=== PATIENT | female | born 1990 | race Caucasian/White ===

== ENCOUNTER 2022-10-15 08:55 | Outpatient (CLI) | payer OTHER, SELFPAY ==
--- NOTE | 2022-10-15 09:15 | CRLHL7_ITS ---
For Patients: As a result of the Century Cures Act, medical imaging exams and procedure reports are released immediately into your electronic medical record. You may view this report before your referring provider. If you have questions, please contact your health care provider. INDICATION: First trimester scan, establish dates. COMPARISON: None. TECHNIQUE: Real-time olivares-scale imaging of the pelvis was performed. No subchorionic hemorrhage. FINDINGS: Gestational sac measures 2.1 cm, 6 weeks 6 days. Internal echoes are present within the gestational sac. Yolk sac appears irregular and measures 2.9 millimeters. pole is poorly defined and measures 2.7 millimeters, 5 weeks 6 days. No heart tones. Corpus luteal cyst is present within the left ovary. No excess pelvic free fluid. IMPRESSION: Poorly defined pole without heart tones with associated echoes in the gestational sac, likely representing demise. Dictated by Earl Stafford MD @ 10/15/2022 9:52:15 AM (Electronically Signed)
== END 2022-10-15 08:56 | disposition home or self-care (01) ==
LOC: US 08:56
PROVIDERS: Visit Provider Physician Assistant
DX: Z34.91 Encounter for supervision of normal pregnancy, unspecified, first trimester (principal); O36.8310 Maternal care for abnormalities of the fetal heart rate or rhythm, first trimester, not applicable or unspecified; Z3A.01 Less than 8 weeks gestation of pregnancy
CPT/HCPCS: 76817

== ENCOUNTER 2022-10-27 10:58 | Outpatient (CLI) | payer OTHER, SELFPAY | END 2022-10-27 10:59 | disposition home or self-care (01) | PROVIDERS: Visit Provider Obstetrics & Gynecology | DX: O03.9 Complete or unspecified spontaneous abortion without complication (principal) | CPT/HCPCS: 76817; 86850; 86900; 86901 ==

== ENCOUNTER 2022-11-03 09:12 | Outpatient (CLI) | payer OTHER, SELFPAY ==
--- NOTE | 2022-11-03 09:15 | CRLHL7_ITS ---
For Patients: As a result of the Century Cures Act, medical imaging exams and procedure reports are released immediately into your electronic medical record. You may view this report before your referring provider. If you have questions, please contact your health care provider. INDICATION: MISSED COMPARISON: 10/27/2022 TECHNIQUE: Real-time olivares-scale imaging of the pelvis was performed. FINDINGS: Interval clearing of the previously noted gestational sac. Endometrial thickness 6 millimeters. No endometrial fluid. Slight heterogeneity of the endometrial echotexture and vascularity. No hematoma. Normal ovaries. No excess pelvic free fluid. IMPRESSION: Interval passage of the previously noted gestational sac. No intrauterine or ectopic . Dictated by Earl Stafford MD @ 11/03/2022 10:06:44 AM (Electronically Signed)
== END 2022-11-03 09:13 | disposition home or self-care (01) ==
LOC: US 09:12
PROVIDERS: Visit Provider Obstetrics & Gynecology
DX: O02.1 Missed abortion (principal)
CPT/HCPCS: 76830

== ENCOUNTER 2023-01-18 18:37 | Emergency (ER) | payer OTHER, SELFPAY ==
[2023-01-18 18:48] VITALS: BP 140/79; PULSE 90; RESP 18; TEMP 36.8; O2SAT 98; BMI 33.3
--- NOTE | 2023-01-18 18:52 | CRLHL7_ITS ---
For Patients: As a result of the Cures Act, medical imaging exams and procedure reports are released immediately into your electronic medical record. You may view this report before your referring provider. If you have questions, please contact your health care provider. INDICATION: Left lower abdominal pain. TECHNIQUE: Ultrasound OB pelvis transabdominal and transvaginal. Real-time olivares-scale imaging of the pelvis was performed. COMPARISON: None. FINDINGS: There is a single intrauterine gestation. The embryo demonstrates a regular cardiac rate measuring 123 beats per minute. The embryo`s crown rump length measurement of 0.8 cm corresponds to a gestational age of 6 weeks, 5 days with a sonographic due date of 09/08/2023. There is a normal appearing yolk sac. There are no gross abnormalities noted within the embryo at this early state of development. The placenta has not yet developed. Incidental 1.3 centimeters subchorionic hemorrhage. The ovaries are of normal size. Tiny right corpus luteal cyst. There are no suspicious fluid collections noted in the cul-de-sac. IMPRESSION: Single viable intrauterine with gestational age of 6 weeks, 5 days based on crown-rump length. Incidental 1.3 centimeters subchorionic hemorrhage which could be followed up with on subsequent imaging. Dictated by Richard Soriano MD @ 01/18/2023 9:03:49 PM (Electronically Signed)
--- NOTE | 2023-01-18 19:42 | ED.GENADULT ---
HPI - General Adult General Chief complaint: Abdominal Pain Stated complaint: Rule out ectopic Time Seen by Provider: 01/18/23 19:43 History of Present Illness HPI narrative: Reports one week of left lower abdominal pain. LMP 05/21, no OB appointment yet . One previous miscarriage. Pain is cramping and 2/ 10. No bleeding or spotting. 32-year-old woman presenting to the emergency department with concern of left lower abdominal/adnexal pain. Described persistent twinges of but pain in the left adnexal area since prior miscarriage in mid to late September of this year. This is her 2nd . This adnexal pain however has been lasting now for a full week so was advised to present to the emergency department for evaluation of potential ectopic. Otherwise is not describing any cramping. No dysuria frequency urgency. No bleeding. Related Data Allergies Allergy/AdvReac Type Severity Reaction Status Date / Time influenza vaccine Allergy Intermediate Uncoded 11/03/22 10:03 Review of Systems Status of ROS: Reports: 6 or more systems reviewed and unremarkable except as noted in History and below [facility] Medical History Patellar dislocation ?S83.006A - Unspecified dislocation of unspecified patella, initial encounter (ICD-10) Surgical History History of loop electrical excision procedure (LEEP) ?Z98.890 - Other specified postprocedural states (ICD-10) Social History Narrative: RN Nonsmoker Exam Narrative: Exam Narrative: Pleasant. Good energy. Breathing easily. I had attempted to see Ms. Lott initially but she had already gone to ultrasound. Upon return, assessed as above. Skin is warm and dry. Well-perfused peripherally without edema. Abdomen is soft mildly uncomfortable to palpation in the left adnexal area without appreciable mass. No peritoneal signs. Const: Vital Signs, click to edit/add: Vital Signs - 24 hr 01/18/23 18:48 01/18/23 19:51 Temperature 98.2 F Pulse Rate [Pulse Oximeter] 90 75 Respiratory Rate 18 20 Blood Pressure [Ri ght Upper Arm] 140/79 H 129/68 Pulse Oximetry 98 98 Oxygen Delivery Me thod Room Air Room Air Documenting provider has reviewed patient's vital signs: yes Course Vital Signs Vital signs: Initial Vital Signs Temperature 98.2 F 01/18/23 18:48 Temperature Source Temporal Artery Scan 01/18/23 18:48 Pulse Rate 90 01/18/23 18:48 Respiratory Rate 18 01/18/23 18:48 Blood Pressure 140/79 H 01/18/23 18:48 Blood Pressure Mean 99 01/18/23 18:48 Pulse Oximetry 98 01/18/23 18:48 Oxygen Delivery Method Room Air 01/18/23 18:48 Vital Signs Temperature 98.2 F 01/18/23 18:48 Pulse Rate 90 01/18/23 18:48 Respiratory Rate 18 01/18/23 18:48 Blood Pressure 140/79 H 01/18/23 18:48 Pulse Oximetry 98 01/18/23 18:48 Oxygen Delivery Method Room Air 01/18/23 18:48 Temperature 98.2 F 01/18/23 18:48 Pulse Rate 75 01/18/23 19:51 Respiratory Rate 20 01/18/23 19:51 Blood Pressure 129/68 01/18/23 19:51 Pulse Oximetry 98 01/18/23 19:51 Oxygen Delivery Method Room Air 01/18/23 19:51 Medical Decision Making MDM Narrative Medical decision making narrative: Urinalysis collected to confirm also looking for indication of infection or possible ureteral stone and colic although history suggest otherwise. Pain reported to be manageable. Did discuss findings with operations and maintenance technican noting viable intrauterine consistent with dates with small subchorionic hemorrhage. Urinalysis unremarkable. Radiology over-read concurs with above. FINDINGS: There is a single intrauterine gestation. The embryo demonstrates a regular cardiac rate measuring 123 beats per minute. The embryo`s crown rump length measurement of 0.8 cm corresponds to a gestational age of 6 weeks, 5 days with a sonographic due date of 09/08/2023. There is a normal appearing yolk sac. There are no gross abnormalities noted within the embryo at this early state of development. The placenta has not yet developed. Incidental 1.3 centimeters subchorionic hemorrhage. The ovaries are of normal size. Tiny right corpus luteal cyst. There are no suspicious fluid collections noted in the cul-de-sac. IMPRESSION: Single viable intrauterine with gestational age of 6 weeks, 5 days based on crown-rump length. Incidental 1.3 centimeters subchorionic hemorrhage which could be followed up with on subsequent imaging. See patient discharge plan Lab Data Lab results reviewed: Yes I reviewed the patient's lab results Labs: Lab Results 01/18/23 Range/Units 19:58 Urine Color Yellow (Yellow) Urine Appearance Clear (Clear) Urine pH 6.5 (5.0-8.5) Ur Specific [place] 1.020 (1.000-1.030) Urine Protein Negative (Negative) Urine Glucose (UA) Negative (Negative) Urine Ketones Negative (Negative) Urine Blood Trace-intact A (Negative) Urine Nitrite Negative (Negative) Urine Bilirubin Negative (Negative) Urine Urobilinogen 0.2 (0.2-1.0) Ur Leukocyte Esterase Trace A (Negative) Urine RBC 0-2 (0-2) Urine WBC 2-5 (0-5) Ur Squamous Epith Cells Few (None-Few) Urine Bacteria Few A (None) Urine HCG, Qual POSITIVE H (Negative) Discharge Plan Discharge Clinical Impression: Subchorionic bleed, Intrauterine , Adnexal pain Patient Disposition: Home, Self-Care Condition: Stable Additional Instructions: Stay well hydrated. Return for marked increase in pain. It is possible might have a little spotting but be seen for increasing bleeding and cramping, fever. Otherwise follow-up for recheck/ultrasound as scheduled. I will call you if Radiology has anything more to say about your ultrasound. Urinalysis was unremarkable. Follow Up/Referrals: Provider,Not a Local [Primary Care Provider] - Stand Alone Forms: [place] Info Instructions
[2023-01-18 19:51] VITALS: BP 129/68; PULSE 75; RESP 20; O2SAT 98
[2023-01-18 20:05] LABS: Appearance Urine Clear (Clear); Bilirubin Urine Negative (Negative); Blood Urine Trace-intact (Negative); Color Urine Yellow (Yellow); Glucose Urine Negative (Negative); Ketones Urine Negative (Negative); Leukocyte Esterase Urine Trace (Negative); Nitrite Urine Negative (Negative); Protein Urine Negative (Negative); Urobilinogen Urine 0.2 (0.2-1.0); pH Urine 6.5 (5.0-8.5)
[2023-01-18 20:08] LABS: Ur HCG Qualitative* POSITIVE (Negative)
[2023-01-18 20:19] LABS: Bacteria Urine Few; RBC Urine 0-2 (0-2); Squamous Epithelial Cell Urine Few (None-Few)
== END 2023-01-18 20:50 | disposition home or self-care (01) ==
LOC: ED 20:27
PROVIDERS: Emergency Provider Family Medicine
DX: O46.91 Antepartum hemorrhage, unspecified, first trimester (principal); R10.2 Pelvic and perineal pain; Z3A.01 Less than 8 weeks gestation of pregnancy
CPT/HCPCS: 76817; 81001; 81025; 87086; 99283; 99284

== ENCOUNTER 2023-02-03 09:34 | Outpatient (CLI) | payer OTHER, SELFPAY ==
--- NOTE | 2023-02-03 09:45 | CRLHL7_ITS ---
For Patients: As a result of the Century Cures Act, medical imaging exams and procedure reports are released immediately into your electronic medical record. You may view this report before your referring provider. If you have questions, please contact your health care provider. INDICATION: Follow-up viability COMPARISON: 12/2022 TECHNIQUE: Real-time olivares-scale imaging of the pelvis was performed. FINDINGS: Sonographic imaging demonstrates a single living intrauterine gestation. The embryo demonstrates a regular cardiac rate measuring 165 beats per minute. The embryo`s crown-rump length measurement of 2.3 cm corresponds to a gestational age of 9 weeks 0 days with a sonographic due date of 09/08/2023. There are no gross abnormalities noted within the embryo at this early state of development. The gestational sac has a normal appearance. Small subchorionic hemorrhage measuring 6 x 2 x 6 millimeters, decreased in size to the prior study. Normal ovaries IMPRESSION: Decreased size of previously noted subchorionic hemorrhage. Single living intrauterine with sonographic gestational age 9 weeks 0 days and sonographic due date 09/08/2023. Dictated by Earl Stafford MD @ 02/03/2023 11:13:49 AM (Electronically Signed)
== END 2023-02-03 09:35 | disposition home or self-care (01) ==
LOC: US 09:34
PROVIDERS: Visit Provider Registered Nurse
DX: Z34.91 Encounter for supervision of normal pregnancy, unspecified, first trimester (principal); O20.9 Hemorrhage in early pregnancy, unspecified; Z3A.09 9 weeks gestation of pregnancy
CPT/HCPCS: 76817; 86592; 86703; 86704; 86706; 86762; 86787; 86803; 86850; 86900; 86901; 87086; 87340; 87491; 87591

== ENCOUNTER 2023-02-03 10:59 | Outpatient (CLI) | payer OTHER, SELFPAY ==
[2023-02-03 17:23] LABS: Chlamydia DNA Amplified* NOT DETECTED (No Detected); GC DNA Amplified* NOT DETECTED (No Detected)
== END 2023-02-03 11:00 | disposition home or self-care (01) ==
PROVIDERS: Visit Provider Registered Nurse
DX: Z34.91 Encounter for supervision of normal pregnancy, unspecified, first trimester (principal)
CPT/HCPCS: 86592; 86703; 86704; 86706; 86762; 86787; 86803; 86850; 86900; 86901; 87086; 87340; 87491; 87591

== ENCOUNTER 2023-04-19 10:05 | Outpatient (CLI) | payer OTHER, SELFPAY ==
--- NOTE | 2023-04-19 10:15 | US_ITS ---
Final Report Patient: BROOKS ALLEN Facility:?[facility] Patient ID:?[id number] Site Patient ID:?[id number]. Site :?[id number] Study:?US OB Pelvis OB ANATOMY-04/19/2023 11:32:14 AM Ordering Physician:LENARD ELVINE Final Report: INDICATION: Evaluate anatomy. COMPARISON: 02/03/2023 TECHNIQUE: Real time olivares scale imaging of the fetus was performed as well as color Doppler analysis of the umbilical vessels. FINDINGS: Sonographic imaging demonstrates a single living intrauterine gestation. Fetus demonstrates a regular cardiac rate of 139 beats per minute. Fetus has a variable position. The placenta lies posteriorly without evidence of placenta previa. Placental edge 7.0 cm from the internal cervical os. Amniotic fluid volume appears normal. Single deepest vertical pocket: 4.4 cm. The cervix is closed and measures 3.7 cm in length. The composite ultrasound gestational age is calculated at 19 weeks 5 days with an estimated sonographic due date of 09/08/2023. The estimated weight is 325 grams which lies at the 53rd %. The following biometric measurements were obtained: Biparietal diameter: 4.2 cm/18 weeks 6 days 12th% Head circumference: 17.0 cm/19 weeks 4 day 29th% Abdominal circumference: 15.6 cm/20 weeks 5 day 73rd% Femur length: 3.0 cm/19 weeks 2 day 24th% The HC/AC ratio measures: 1.09 range (1.08-1.26) On anatomic survey, there is a normal appearance of the cerebral ventricles, cavum septi pellucidi, cisterna magna and cerebellum. The nose, lips, and facial profile appear normal. The cervical, thoracic and lumbar spine are well visualized and appear normal. Incomplete visualization of the cardiac structures. The diaphragm and stomach appear normal. The kidneys and bladder also appear normal. There is a normal three-vessel cord and there is an eccentric cord insertion site. The four extremities appear normal. IMPRESSION: Concordance of clinical and sonographic dating. Incomplete visualization of the cardiac structures. Remainder of the anatomic survey is normal. Short-term follow-up recommended. Dictated by Earl Stafford MD @ 04/20/2023 6:11:21 AM (Electronic Signature)
== END 2023-04-19 10:06 | disposition home or self-care (01) ==
PROVIDERS: Visit Provider Advanced Practice Midwife
DX: Z34.92 Encounter for supervision of normal pregnancy, unspecified, second trimester (principal); Z3A.19 19 weeks gestation of pregnancy
CPT/HCPCS: 76805

== ENCOUNTER 2023-05-17 08:04 | Outpatient (CLI) | payer OTHER, SELFPAY ==
--- NOTE | 2023-05-17 08:15 | US_ITS ---
Patient: BROOKS ALLEN Facility:?[facility] Patient ID:?[id number] Site Patient ID:?[id number] Site :?[id number] Study:?US-OB Pelvis FOLLOW UP-05/17/2023 8:44:13 AM Ordering Physician:DEVANTE MOORE Final Report: INDICATION: Evaluate anatomy. COMPARISON: none TECHNIQUE: Real time olivares scale imaging of the fetus was performed as well as color Doppler analysis of the umbilical vessels. FINDINGS: Sonographic imaging demonstrates a single living intrauterine gestation. Fetus demonstrates a regular cardiac rate of 139 beats per minute. Fetus has a vertex position. The placenta lies posteriorly. Normal stomach. There is a normal four-chamber heart view and the left and right ventricular outflow tracts appear normal. IMPRESSION: Normal heart views. Dictated by Earl Stafford MD @ 05/17/2023 8:58:59 AM Signed by:?Earl Stafford MD @05/17/2023 8:58:59 AM (Electronic Signature)
== END 2023-05-17 08:05 | disposition home or self-care (01) ==
LOC: US 08:05
PROVIDERS: Visit Provider Advanced Practice Midwife
DX: Z34.90 Encounter for supervision of normal pregnancy, unspecified, unspecified trimester (principal)
CPT/HCPCS: 76816

== ENCOUNTER 2023-06-14 08:35 | Outpatient (CLI) | payer OTHER, SELFPAY | END 2023-06-14 08:36 | disposition home or self-care (01) | LOC: NFLDREF 06-16 06:06 | PROVIDERS: Visit Provider Advanced Practice Midwife | DX: Z34.93 Encounter for supervision of normal pregnancy, unspecified, third trimester (principal) | CPT/HCPCS: 86592 ==

== ENCOUNTER 2023-06-18 08:29 | Outpatient (CLI) | payer OTHER, SELFPAY | END 2023-06-18 08:30 | disposition home or self-care (01) | LOC: NFLDREF 06-21 08:07 | PROVIDERS: Visit Provider Advanced Practice Midwife | DX: R73.09 Other abnormal glucose (principal) | CPT/HCPCS: 82951; 82952 ==

== ENCOUNTER 2023-08-13 09:30 | Outpatient (CLI) | payer OTHER, SELFPAY ==
[2023-08-14 13:14] LABS: Strep B DNA Probe Negative (Negative)
[2023-08-14 13:57] LABS: Strep B Susceptibility Needed? No
== END 2023-08-13 09:31 | disposition home or self-care (01) ==
LOC: NFLDREF 09:30
PROVIDERS: PCP Nurse Practitioner Family; Visit Provider Advanced Practice Midwife
DX: Z34.83 Encounter for supervision of other normal pregnancy, third trimester (principal)
CPT/HCPCS: 87081; 87653

== ENCOUNTER 2023-09-13 18:59 | Inpatient (IN) | payer OTHER, SELFPAY ==
[2023-09-13 19:23] VITALS: BMI 39.4
[2023-09-13 19:31] VITALS: BP 131/77; PULSE 86
[2023-09-13] MEDS: miSOPROStoL 25 MCG/0.25 TABLET VAGINAL ×2 (19:37→23:30)
--- NOTE | 2023-09-13 19:39 | W.PM.LDBA ---
Subjective History of Present Illness Narrative: Maria Eugenia Torrez is a 33 yo at 40 6/7 weeks gestation being admitted to Labor and Delivery for induction of labor for post-dates. She reports ana laura garcía but nothing more intense. She denies any leaking fluid or bleeding. She is supported by her , Darell. Her full history and physical was dictated by Ke Curry CNM on 08/23/2023. Please see this for details. 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 History of LEEP procedure in 2019. June 2020 normal Pap, negative HPV. September 2021 normal Pap, negative HPV. Pap performed at 1st OB: NIL, HPV neg 2. COVID infection during EFW at 20 weeks: 53%ile No additional recommendations 3. Body mass index 34.2 Hemoglobin A1c: 5.2 Begin baby aspirin starting at 12 weeks 4. 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 Failed 1 hour gct (140) 3 hour gct- passed Flu: Not vaccinated, Allergic Covid: Initial vaccine completed, not boosted. Recommended. Declined. TDAP: 06/28/2023 OB - Problem Based A/P Additional Plan (1) Encounter for induction of labor: Status: Acute (2) Post term over 40 weeks: Problem details: 41 0/7 weeks gestation at midnight Status: Acute (3) History of LEEP (loop electrosurgical excision procedure) of cervix complicating : Status: Acute Plan ASSESSMENT:? 33 yo at 40 6/7 weeks gestation? complicated by:?Hx of leep, covid in early , pre- BMI 34, failed 1 hour gct/passed 3 hour Labor type: Induced labor? Category 1 FHR pattern.?? Labor complicated by: history of leep? GBS negative? ? PLAN:? 1. Routine intrapartum cares as ordered. Discussed IOL agents including cytotec, naik, or pitocin. Recommend vaginal cytotec per protocol. Patient agrees with plan. 2. Monitoring per policy, continuous with IOL agent. ? 3. Planning unmedicated . Considering water . Consent signed. Hep C negative. Candidate for analgesia of choice if desired.?? 4. Patient encouraged to reposition and ambulate to promote physiologic labor and .? 5. Anticipate ? Delivery/Labor/Induction Plan Plan: induction Induction method: per misoprostol protocol OB Result Labs Blood Type: A (+) positive GBS Status: negative OB Exam Physical Exam Vital signs: Pulse BP 86 131/77 09/13/23 19:31 09/13/23 19:31 Narrative: Vitals Reviewed Constitutional:? Alert and oriented x3 HEENT:? Normocephalic, atraumatic Neck:? Supple Lungs:? Clear to auscultation bilaterally Heart:? Regular rate and rhythm, no murmur, rub or gallop Abdomen:? Soft, nontender, and gravid. Vertex by Judson's, confirmed with cervical exam. Extremities:? No edema or erythema Cervix: 1 cm/70%/-2 station/vertex NST: 135 bpm/moderate variability/15x15 accelerations/no decelerations/occasional contractions Detailed Labor and Delivery Exam Patient Gravid: Yes
[2023-09-13 19:45] VITALS: TEMP 36.7
[2023-09-13 19:47] LABS: Basophils Percent Auto 0.1 % (0.0-3.0); Eosinophils Percent Auto 0.7 % (0.0-7.0); Hematocrit 42.5 % (33.0-51.0); Hemoglobin* 14.6 gm/dL (12.0-16.0); Immature Granulocytes Pct Auto 1.7 %; Lymphocytes Percent Auto 19.2 % (20-44); Mean Corpuscular HGB Conc 34 gm/dL (32-36); Mean Corpuscular Hemoglobin 31 pg (26-34); Mean Corpuscular Volume 91 fL (80-100); Monocytes Percent Auto 7.1 % (0.0-11.0); Neutrophils Percent Auto 71.2 % (42.0-72.0); Platelet Count* 292 K/uL (140-440); RDW Coefficient of Variation % 14.5 % (11.5-15.5); Red Blood Count 4.67 m/uL (4.00-5.20); White Blood Count* 13.85 K/uL (4.50-11.00)
[2023-09-13 19:57] LABS: Slide Review Reflex No
[2023-09-13 21:30] VITALS: TEMP 36.6
[2023-09-13 23:23] VITALS: BP 131/74; PULSE 71
[2023-09-13 23:28] VITALS: TEMP 36.5
[2023-09-14] VITALS (74 sets, daily range): BP systolic 94–143; BP diastolic 52–77; PULSE 70–112; RESP 16; TEMP 36.5–37; O2SAT 93–100
[2023-09-14] MEDS: miSOPROStoL 25 MCG/0.25 TABLET VAGINAL (03:26)
[2023-09-14] MEDS: ONDANSETRON ODT 4 MG TAB PO (06:30)
--- NOTE | 2023-09-14 07:34 | PM.OBPNL ---
Subjective Date Seen: 09/14/23 Narrative: Lore had 3 doses of Cytotec vaginally overnight. She did have SROM with clear fluid at 0526 this morning and her contractions quickly increased in frequency and intensity. Her cervix was checked by the RN this morning around 0630 and it was 2cm/80%/-2. She requested hydrotherapy shortly after that. She found some relief with that but is breathing through them. She states that she wishes she had a break between contractions and is tired of them already so is requesting an epidural. Discussed how a LEEP can impact cervical dilation which she is aware. Discussed attempting to gently break up some scar tissue and seeing if her dilation has changed before epidural but she declines stating that it wouldn't likely change her plan. The RN with prepare her for epidural placement. Will consider reevaluating LEEP scar tissue with an exam after her epidural is in place and she is comfortable if she desires. Objective Vital Signs: Last Vital Signs Temp 98.6 F 09/14/23 06:59 Pulse 82 09/14/23 03:28 BP 124/77 09/14/23 03:28 Pulse Ox 96 09/14/23 03:27 Contractions Monitor mode: Palpation Contraction Frequency: 2-3 Contraction pattern: Irregular Contraction intensity: Strong/Firm Assessment Assessment: induction ongoing Amniotic Membrane Status: SROM Tracing Comments: Intermittent auscultation WNL at this time. Plan Plan: ASSESSMENT:? 33 yo at 41 0/7 weeks gestation? complicated by:?Hx of leep, covid in early , pre- BMI 34, failed 1 hour gct/passed 3 hour Labor type: Induced labor? Category 1 FHR pattern obtained. Current intermittent auscultation WNL.?? Labor complicated by: history of leep? GBS negative? ? PLAN:? 1. Routine intrapartum cares as ordered. 2. Candidate for analgesia of choice. Requesting epidural analgesia. 3. Currently utilizing intermittent auscultation. Continuous monitoring per policy with placement of epidural analgesia. ? 4. Patient encouraged to reposition to promote physiologic labor and .? 5. Anticipate .?
[2023-09-14] MEDS: LACTATED RINGERS 1000 ML 1,000 ML 900 ML IV (08:05)
[2023-09-14] MEDS: ROPIVACAINE 0.2% 100 ml 100 ML 12 MG EPIDURAL ×2 (08:38→16:32)
[2023-09-14] MEDS: BUPIVACAINE 0.25% PF 10 ML 10 ML ML EPIDURAL (08:38)
--- NOTE | 2023-09-14 08:41 | P.ANBPRC_ITS ---
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 What is your current living situation?: I presently have a place to live Problems where you live: no known problems In the past 12 months, utilities in danger of being shut off: no In past 12 months, lack of transportation kept you from medical appts, meetings, work, or getting things needed for daily living: no In the past 12 mos, have been you worried that your food would run out before you had money to buy more?: never true In the past 12 mos, the food you bought just didn't last and you didn't have money to buy more?: never true Smoking Status: Never smoker How often does anyone, including family, friends and others, physically hurt you : never How often does anyone, including family, friends and others, insult or talk down to you: never How often does anyone, including family, friends and others, threaten you with harm: never How often does anyone, including family, friends and others, scream or curse at you: never Little interest or pleasure in doing things: not at all Feeling down, depressed, or hopeless: not at all Meds Home Medications and Allergies Home Medications ?Medication ?Instructions ?Recorded ?Confirmed ?Type acetaminophen 500 mg tablet 1,000 mg PO Q6H PRN 02/03/23 09/13/23 History (Tylenol Extra Strength) docosahexaenoic acid 200 mg 1 mg PO DAILY 02/03/23 09/13/23 History capsule ( DHA) aspirin 81 mg tablet,delayed 81 mg PO QDAY 04/05/23 09/13/23 History release Allergies Allergy/AdvReac Type Severity Reaction Status Date / Time influenza vaccine Allergy Intermediate Uncoded 09/06/23 09:48 Results Labs Labs: Laboratory Results - last 24 hr 09/13/23 19:41 WBC 13.85 H RBC 4.67 Hgb 14.6 Hct 42.5 MCV 91 MCH 31 MCHC 34 RDW Coeff of Shanda 14.5 Plt Count 292 Neut % (Auto) 71.2 Lymph % (Auto) 19.2 L [place] % (Auto) 7.1 Eos % (Auto) 0.7 Baso % (Auto) 0.1 Neut # (Auto) 9.90 H Lymph # (Auto) 2.70 [place] # (Auto) 1.00 H Eos # (Auto) 0.10 Baso # (Auto) 0.00 Abs Immat Gran (auto) 0.20 Imm/Tot Granulo (auto) 1.7 Blood Type A Positive Antibody Screen NEGATIVE Vital Signs Vital Signs: Last Vital Signs Temp 98.6 F 09/14/23 06:59 Pulse 72 09/14/23 08:40 BP 121/65 09/14/23 08:40 Pulse Ox 100 09/14/23 08:36 Weight: 107.683 kg Height: 165.1 cm Anesthesia Procedures Epidural Insertion Patient Location: OB Start Time: 08:10 Stop Time: 09:00 Start Date: 09/14/23 Stop Date: 09/14/23 Reason for Block: procedure for pain Patient Position: sitting Performed By: Navid Molina Preanesthetic Checklist: IV checked, risks and benefits discussed, surgical consent, monitors and equipment checked, pre-op evaluation, timeout performed and anesthesia consent Prep: chlorhexidine gluconate Monitoring: blood pressure monitoring, continuous pulse oximetry and heart rate Approach: midline Vertebral Space: lumbar (1-5) Epidural Technique: LOS saline Needle Type: Tuohy needle Injection Technique: continuous catheter Needle gauge: 17 Needle Length (cm): 10 cm Needle Insertion Depth (cm): 6 Catheter Gauge: 19 Catheter Type: multi-orifice Catheter at skin depth (cm): 12 Test Dose Result: negative and lidocaine 1.5% with epinephrine 1 to 200,000
[2023-09-14] MEDS: LACTATED RINGERS 1000 ML 1,000 ML 125 ML IV ×2 (09:49→17:17)
[2023-09-14] MEDS: OXYTOCIN 30 unit/500 ML in NS 30 UNIT/500 ML BAG 325 UNIT IVPB (18:18)
--- NOTE | 2023-09-14 18:38 | W.PM.OBVAGDE ---
OB Procedure Vag Delivery Mother Details Mother Details: The patient is a 33 year-old, 2, Para 0, admitted on 09/13/23 at 40.6 Days gestation. : 2 Para: 1 Weeks Gestation: 41.0 Admission Date: 09/13/23 Additional Details Amniotic Membrane Status: SROM Amniotic Membrane Rupture Date: 09/14/23 Amniotic Membrane Rupture Time: 05:26 Amniotic Membrane Fluid Description: Clear Analgesia/Anesthesia Type: Epidural Waterbirth: No Pitcoin: Yes ([facility] only) Intrapartal Events: Labor Induction Induction Method: per misoprostol protocol Labor Onset: 06:00 Complete: 14:59 Pushin:05 Heart: heart tones during second stage were category 2. Baseline 135, + accels, variable and early decels, moderate variability. Tracing was intermittent with pushing but no decreases were heard. Delivery Details Delivery Date: 09/14/23 Delivery Time: 18:18 Route of delivery: Gender: Female Infant Viability: Alive; Heart Rate Present Position at Delivery: OA Delivery Details: Patient was admitted for IOL and progressed after 3 doses of Cytotec and SROM. SROM noted at 0526 with clear fluid. Patient was complete at 1459 and pushing at 1505. of a viable female at 1818 in left tilt after pushing in multiple positions. Vertex delivered OA. No nuchal cord or shoulder. Body delivered easily and without incident. Infant passed to mothers abdomen with a vigorous cry. Cord was clamped and cut at > 5 minutes. APGARS were 8 at one minute and 9 at five minutes respectively. Mouth was bulb suctioned. Intact placenta with a 3 vessel cord delivered spontaneously at 1825. A eccentric cord insertion was noted. Fundus firm. 1st identified and was hemostatic. After shared decision making it was decided not to repair. QBL 500 cc. Mother and baby stable; mother plans to breastfeed. weight pending.? 1 Minute Interval Total Score: 8 5 Minute Interval Total Score: 9 Additional Details Shoulder Dystocia: No Placenta Delivery Time: 18:25 Placental Delivery Description: Spontaneous Procedure Done: Global Blood Loss: 500 Laceration: Perineal - 1st Degree Episiotomy Description: None Blood Loss Measurement Type: QBL Bakri Used: No Sponge/Need Count Correct: Yes Cord Vessel Description: 3 Vessels Event Summary Status: Mother and infant were stable after delivery. Disposition: floor
[2023-09-15 00:25] VITALS: BP 103/67; PULSE 78; RESP 18; TEMP 36.8; O2SAT 96
[2023-09-15 04:24] VITALS: BP 116/67; PULSE 69; RESP 16; TEMP 36.9; O2SAT 96
[2023-09-15 06:34] LABS: Hemoglobin* 13.2 gm/dL (12.0-16.0)
--- NOTE | 2023-09-15 08:08 | PM.OBPNVD1 ---
OB - PN:Subj Subjective Date Seen: 09/15/23 Narrative: Maria Eugenia is a 33 y.o. who was admitted to [facility] for IOL for post dates. ?She had an uncomplicated NVD.?The patient feels well. ?The pain is well controlled with current medications. ?She has no new complaints. ?She is breast feeding and reports things are improving, but baby is a biter and has had sleepy periods.? the patient has done well.? Vitals have been stable.? She has remained afebrile.? Has a good appetite, is tolerating a general diet. ?She is voiding without difficulty.? She is passing gas and has not had a bowel movement.? She is ambulating and denies any dizziness.? Has Small amount of rubra lochia. OB - PN: Obj Exam Physical Exam: Vital signs: Temp Pulse Resp BP Pulse Ox O2 Del Method 98.5 F 69 16 116/67 96 Room Air 09/15/23 04:09/15/23 04:09/15/23 04:09/15/23 04:24 09/15/23 04:09/15/23 04:24 Narrative: GENERAL APPEARANCE:? normal affect, alert, no distress MOOD:? appropriate CHEST:? clear to auscultation HEART:? regular rate and rhythm ABDOMEN:? soft, non-tender the uterine fundus is At Umbilicus, Midline and is appropriate for the stage of recovery. PERINEUM:? minimal edema of the perineum EXTREMITIES:? normal and minimal edema OB - PN: Obj Data Labs Labs: Laboratory Results - last 24 hr 09/15/23 06:01 Hgb 13.2 OB - PN: A/P Delivery Assessment and Plan (1) care and examination of lactating mother: Status: Acute (2) (normal spontaneous vaginal delivery): Status: Acute Plan Anticipate discharge home with baby tomorrow to further work on latch.? Continue to promote rest, nourishment, hydration, baby care. , may see if needed? Hgb 13.2. ? Plan day: 1 Plan: routine care
--- NOTE | 2023-09-15 08:10 | PM.ANPOST ---
Post Anesthesia Note Post Anesthesia Note Patient seen: Inpatient Respiratory Status: adequate Cardiovascular Status: adequate Mental Status: baseline Pain: adequate Temp: baseline Anesthetic awareness: N/A Complications: none Follow care: none
[2023-09-15 08:11] VITALS: BP 104/71; PULSE 77; RESP 16; TEMP 36.5; O2SAT 94
[2023-09-15] MEDS: DOCUSATE SODIUM 100 MG CAPSULE PO (08:21)
[2023-09-15] MEDS: ACETAMINOPHEN 500 MG TABLET 1000 MG PO ×2 (08:21→16:33)
[2023-09-15 12:10] VITALS: BP 111/74; PULSE 75; RESP 16; TEMP 36.4; O2SAT 95
[2023-09-15 15:28] LABS: Rapid Plasma Reagin (RPR) Non Reactive (Non Reactive)
[2023-09-15 16:25] VITALS: BP 108/72; PULSE 73; RESP 16; TEMP 36.6; O2SAT 95
[2023-09-15 19:00] VITALS: BP 125/79; PULSE 70; RESP 16; TEMP 36.4; O2SAT 96
[2023-09-16 03:30] VITALS: BP 102/59; PULSE 70; RESP 16; TEMP 36.6; O2SAT 96
[2023-09-16 07:20] VITALS: BP 118/80; PULSE 74; RESP 16; TEMP 36.4; O2SAT 95
--- NOTE | 2023-09-16 07:41 | P.DS_ITS ---
DS: Providers Provider Date Seen: 09/16/23 Date of admission: 09/13/23 18:59 Primary care physician: Dayana Hartman, WATERSHED MANAGER, VICE PRESIDENT UND[employer]WRITING Admitting Clinician: Marlene Curry CNM Attending Physician on discharge: Marlene Curry CNM Date of Discharge: 09/16/23 DS: Diagnosis Discharge Diagnosis (1) care and examination of lactating mother: Status: Acute (2) (normal spontaneous vaginal delivery): Status: Acute Exam Narrative: Exam Narrative: GENERAL APPEARANCE:? normal affect, alert, no distress? MOOD:? appropriate? CHEST:? clear to auscultation and percussion? HEART:? regular rate and rhythm? ABDOMEN:? soft, non-tender the uterine fundus is U/2 and is appropriate for the stage of recovery.? PERINEUM:? mild edema of the perineum, there is a 1st degree laceration that is healing well.? EXTREMITIES:? normal and no edema? Const: Vital Signs, click to edit/add: Vital Signs - 24 hr 09/15/23 08:11 09/15/23 12:10 09/15/23 16:25 Temperature 97.7 F 97.5 F L 97.8 F Pulse Rate [Pulse Oximeter] 77 75 73 Respiratory Rate 16 16 16 Blood Pressure [Le ft Arm] 104/71 111/74 108/72 Pulse Oximetry 94 95 95 Oxygen Delivery Me thod Room Air Room Air Room Air 09/15/23 19:00 09/16/23 03:30 09/16/23 07:20 Temperature 97.6 F 97.9 F 97.6 F Pulse Rate [Pulse Oximeter] 70 70 74 Respiratory Rate 16 16 16 Blood Pressure [Le ft Arm] 125/79 102/59 L 118/80 Pulse Oximetry 96 96 95 Oxygen Delivery Me thod Room Air Room Air Room Air Documenting provider has reviewed patient's vital signs: yes OB - DS: Summary Hospital Course Hospital Course: Lore is a 33 year old G 2 P 1 at 41.0 weeks gestation that was admitted to the Center on 09/13/23 for postdates IOL. She had an uncomplicated vaginal delivery. She delivered a viable female . She is breast feeding and working with . Baby is latching well but bites so she is experiencing soreness as a result. the patient has done well. Her pain is well controlled with current medications.? She has no new complaints.? Urinary output is adequate and she is voiding without difficulty.? Has a good appetite, is tolerating a general diet, is passing flatus, and has had a bowel movement.? Has scant amount of rubra lochia.? She is ambulating well. She is planning on using progestin oral pills for contraception and going back to the [facility] once finished . She declines prescriptions for ibuprofen or stool softeners stating that she has them available at home. Encouraged stool softeners 1-2 times per day and ibuprofen or Tylenol PRN. Peripartum Data delivery method: Vaginal Laceration description: Perineal - 1st Degree Episiotomy description: None complications: none [place] Gender: Female Infant Discharge Plan: Home Status at Discharge Functional status at discharge: independent ambulation Overall status at discharge: patient is progressing back to baseline Time Spent with Patient Time attestation: Total time spent providing and/or coordinating discharge services: Discharge Plan Discharge Disposition: Home, Self-Care Date of Admission: 09/13/23 18:59 Primary Care Provider: Dayana Hartman Condition: Stable Anticipated Discharge Date/Time: 09/16/23 09:00 Discharge Medications: Continued DHA 200 mg capsule 1 mg PO DAILY acetaminophen [Tylenol Extra Strength] 500 mg tablet 1,000 mg PO Q6H PRN Discontinued aspirin 81 mg tablet,delayed release (DR/EC) 81 mg PO QDAY Discharge Orders: Discharge Order (Routine); Ordered 09/16/23 Ordered By: Wendy Rodríguez Patient Education: OB Vaginal/Breast Feeding Additional Instructions: Discharge instructions were reviewed with the patient including signs and symptoms of infection and home going medications.?? ? Off Work or School for 6 weeks.? ?? Symptoms to report to doctor:? -Bleeding that saturates more than one pad per hour? -Passing clots larger than the size of a golf ball? -Pain not relieved by prescribed medication? -Fever above 100.4 degrees Fahrenheit? -A foul vaginal odor? -Difficulty in emotions, mood and functions? -Thoughts of hurting yourself and/or ? -Painful, reddened area in your breast? -Any drainage, redness or tenderness in your IV/epidural site? -Severe headache that doesn't improve after taking medications? -Changes in vision, including temporary loss of vision, blurred vision, and/or light sensitivity? -Upper abdominal pain (usually under ribs on the right side)? -Decrease in urination or painful, frequent urinating? -Chest pain? -Shortness of breath? -Tenderness or pain with redness and/swelling in the calf(s) of your leg? ?? Follow Up in clinic in 2 and 6 weeks.? ?? consultation services are available to all mothers and babies for the first year after delivery.? To make an appointment, please call [phone].? Activity Level: Activity as Tolerated Follow Up Appointments: [facility] [Provider Group] Forms: MyHealth Info Instructions
== END 2023-09-16 11:17 | disposition home or self-care (01) | DRG 807 ==
PROVIDERS: Admitting Provider Advanced Practice Midwife; PCP Nurse Practitioner Family; Visit Provider Advanced Practice Midwife
DX: O70.0 First degree perineal laceration during delivery (principal); Z37.0 Single live birth; O48.0 Post-term pregnancy; Z3A.40 40 weeks gestation of pregnancy; O43.123 Velamentous insertion of umbilical cord, third trimester; Z87.42 Personal history of other diseases of the female genital tract
CPT/HCPCS: 01967; 36415; 59200; 85018; 85025; 86592; 86850; 86900; 86901; A9270; J0665; J2371; J2795; J7120

== ENCOUNTER 2024-08-31 11:25 | Outpatient (CLI) | payer OTHER, SELFPAY ==
--- NOTE | 2024-08-31 11:30 | CRLHL7_ITS ---
For Patients: As a result of the Century Cures Act, medical imaging exams and procedure reports are released immediately into your electronic medical record. You may view this report before your referring provider. If you have questions, please contact your health care provider. CLINICAL HISTORY: dating, viability bleeding COMPARISON: None. TECHNIQUE: 2D olivares-scale and color Doppler images were acquired of the pelvis using a transvaginal approach. FINDINGS: Endometrial thickness 8 millimeters. Heterogeneous nonvascular tissue is located within the lower uterine segment measuring 2.4 x 0.8 x 1.4 cm. No pole or yolk sac. No gestational sac. The left ovary measures 3.0 x 1.7 x 3.1 cm in size and the right ovary measures 3.1 x 2.5 x 2.2 cm. The ovaries demonstrate normal arterial and venous blood flow on color Doppler analysis. There are no suspicious fluid collections within the cul-de-sac. Corpus luteal cyst right ovary measures 1.4 x 1.2 x 1.3 cm. IMPRESSION: No intrauterine or ectopic . Focal nonvascular heterogeneous area within the lower uterine segment measuring 2.4 x 0.8 x 1.4 cm compatible with blood products. Dictated by Earl Stafford MD @ 08/31/2024 4:54:10 PM (Electronically Signed)
== END 2024-08-31 11:26 | disposition home or self-care (01) ==
LOC: US 11:25
PROVIDERS: PCP Nurse Practitioner Family; Visit Provider Advanced Practice Midwife
DX: O03.9 Complete or unspecified spontaneous abortion without complication (principal)
CPT/HCPCS: 76817

== ENCOUNTER 2024-12-01 13:35 | Outpatient (CLI) | payer OTHER, SELFPAY | END 2024-12-01 13:36 | disposition home or self-care (01) | LOC: NFLDREF 13:36 | PROVIDERS: PCP Nurse Practitioner Family; Visit Provider Advanced Practice Midwife | DX: O09.291 Supervision of pregnancy with other poor reproductive or obstetric history, first trimester (principal) | CPT/HCPCS: 84702 ==

== ENCOUNTER 2024-12-08 11:35 | Outpatient (CLI) | payer OTHER, SELFPAY ==
--- NOTE | 2024-12-08 11:30 | CRLHL7_ITS ---
For Patients: As a result of the Cures Act, medical imaging exams and procedure reports are released immediately into your electronic medical record. You may view this report before your referring provider. If you have questions, please contact your health care provider. OB ULTRASOUND INDICATION: Dating and viability. TECHNIQUE: Real time grayscale imaging of the fetus was performed. Transvaginal. Transvaginal imaging performed to better demonstrate the endometrium and ovaries. LMP: 10/02/2024. JENNI by LMP: 07/09/2025. GA: 9 w, 4 d. Previous US: No. CRL: 2.8 cm. 9 w 4 d. JENNI: 07/09/2025. FHR: 167 BPM. Gestational sac: 4.2 cm. Appears within normal limits. Yolk sac: 3.4 mm. Appears within normal limits. Right ovary: 2.9 x 2.3 x 1.5 cm. Left ovary: 3.3 x 3.0 x 1.8 cm. IMPRESSION: Single living intrauterine measures 9 weeks 4 days with sonographic due date 07/09/2025. Earl Stafford M.D. Diagnostic Radiologist [email or web address] ARCHIE/[email or web address]/Dictated by: Earl Stafford MD @ 12/08/2024 12:13:00 PM (Electronically Signed)
== END 2024-12-08 11:36 | disposition home or self-care (01) ==
LOC: US 11:36
PROVIDERS: PCP Nurse Practitioner Family; Visit Provider Advanced Practice Midwife
DX: Z34.91 Encounter for supervision of normal pregnancy, unspecified, first trimester (principal); Z3A.09 9 weeks gestation of pregnancy
CPT/HCPCS: 76817

== ENCOUNTER 2024-12-12 11:43 | Outpatient (CLI) | payer OTHER, SELFPAY | END 2024-12-12 11:44 | disposition home or self-care (01) | LOC: NFLDREF 12-28 02:46 | PROVIDERS: PCP Nurse Practitioner Family; Referring Provider Nurse Practitioner Family; Visit Provider Advanced Practice Midwife | DX: Z34.91 Encounter for supervision of normal pregnancy, unspecified, first trimester (principal) | CPT/HCPCS: 83020; 83021; 85660; 86592; 86703; 86704; 86706; 86762; 86787; 86803; 86900; 86901; 87086; 87340 ==